=== PATIENT | female | born 1985 | race African-American/Black ===

== ENCOUNTER 2017-01-14 03:35 | Emergency (ER) | payer MEDICARE, MEDICAID ==
[~2017-01-14] VITALS: Ht 165.1 cm; Wt 56.0 kg
[2017-01-14] MEDS ORDERED: SODIUM CHLORIDE 0.9% 500 ML IV ONE (04:05)
[2017-01-14] MEDS ORDERED: ONDANSETRON HCL 4MG/2ML VIAL IV STA (04:05)
[2017-01-14] MEDS ORDERED: PANTOPRAZOLE SODIUM 40 MG/VIAL IV STA (04:05)
[2017-01-14] MEDS ORDERED: MORPHINE SULFATE 4 MG/ML CPJ (NOT FOR IM USE) IV STA (04:05)
[2017-01-14 05:00] LABS: PROTHROMBIN TIME 10.9 sec
[2017-01-14] MEDS ORDERED: DIAZEPAM 5 MG/ML 2ML CPJ IV ONE (05:00)
[2017-01-14 05:11] LABS: HCG SCREEN NEGATIVE
[2017-01-14] MEDS ORDERED: PREDNISONE 10MG TABLET PO ONE (05:30)
[2017-01-14] MEDS ORDERED: MORPHINE SULFATE 4 MG/ML CPJ (NOT FOR IM USE) IV ONE ×2 (05:30→13:45)
[2017-01-14 05:34] LABS: BASOPHILS % 0.3 % (0.0-2.0); DIFFERENTIAL COMMENT 0; EOSINOPHILS % 0.2 % (0.0-5.0); LYMPHOCYTES % 12.3 % (20.0-50.0); MEAN CORPUSCULAR HEMOGLOBIN 29.5 pg (28.0-32.0); MEAN CORPUSCULAR HGB CONC 31.7 g/dL (31.0-37.0); MEAN CORPUSCULAR VOLUME 93.1 fL (81.0-99.0); MEAN PLATELET VOLUME 10.5 fl (7.4-10.4); MONOCYTES % 5.5 % (2.0-8.0); NEUTROPHILS % 81.7 % (40.0-76.0); PLATELET 164 x1000/uL (130-400); RED BLOOD CELL COUNT 2.04 mill/uL (4.2-5.4); RED CELL DISTRIBUTION WIDTH 20.7 % (11.6-14.6)
[2017-01-14] MEDS ORDERED: PANTOPRAZOLE 80 MG in SODIUM CHLORIDE 0.9% 100 ML IV STA (05:39)
[2017-01-14 06:40] LABS: CHLORIDE 97 mEq/L (98-107); INDEX HEMOLYSI 1 (1-3); INDEX ICTERIC 1 (1-4); INDEX LIPEMIC 1 (1-3)
[2017-01-14 06:53] LABS: ALANINE AMINOTRANSFERASE 16 IU/L (13-61); ALBUMIN 2.3 g/dL (3.4-5.0); ANION GAP 25; CALCIUM 6.6 mg/dL (8.5-10.1); CARBON DIOXIDE 26 mEq/L (21-32); LIPASE 258 IU/L (73-393)
[2017-01-14 06:56] LABS: eGFR 2 mL/min (>60)
[2017-01-14 07:01] LABS: UREA NITROGEN BLOOD 103 mg/dL (7-21)
[2017-01-14] MEDS ORDERED: DEXTROSE 50% WATER 50ML SYRINGE IV NR (08:15)
[2017-01-14] MEDS ORDERED: CALCIUM CHLORIDE 1,000 MG in DEXT 5% WATER 90 ML IV NR (08:15)
[2017-01-14] MEDS ORDERED: INSULIN REGULAR (HUMULIN R) 300UNITS/3ML IV NR (08:15)
[2017-01-14] MEDS ORDERED: SODIUM POLYSTYRENE SULFONATE 15 G/60 ML BOT PO NR (08:15)
[2017-01-14] MEDS ORDERED: IPRATROPIUM/ALBUTEROL 0.5-3(2.5)MG/3ML NEB HHN NR (08:16)
[2017-01-14] MEDS ORDERED: FUROSEMIDE 40MG/4ML VIAL IVP NR (08:23)
[2017-01-14] MEDS ORDERED: PANTOPRAZOLE SODIUM 40 MG/VIAL IV ONE (08:27)
[2017-01-14] MEDS ORDERED: DEXTROSE 50% WATER 50ML SYRINGE IV ONE (08:30)
[2017-01-14] MEDS ORDERED: CALCIUM CHLORIDE 1,000 MG in DEXT 5% WATER 90 ML IV ONE (08:30)
[2017-01-14] MEDS ORDERED: INSULIN REGULAR (HUMULIN R) UD 100 UNITS/ML SYR IV ONE (08:30)
[2017-01-14] MEDS ORDERED: IPRATROPIUM/ALBUTEROL 0.5-3(2.5)MG/3ML NEB HHN ONE (08:30)
[2017-01-14] MEDS ORDERED: ONDANSETRON HCL 4MG/2ML VIAL IV PRN (08:45)
[2017-01-14] MEDS ORDERED: VANCOMYCIN 750 MG PREMIX 150 ML IV SCH (08:45)
[2017-01-14] MEDS ORDERED: METRONIDAZOLE 500 MG PREMIX 100 ML IV ONE (08:45)
[2017-01-14] MEDS ORDERED: MEROPENEM 500 MG in SODIUM CHLORIDE 0.9% 50 ML IV SCH (08:45)
[2017-01-14] MEDS ORDERED: MORPHINE SULFATE 2 MG/ML CPJ (NOT FOR IM USE) ONE (08:51)
[2017-01-14] MEDS ORDERED: ONDANSETRON HCL 4MG/2ML VIAL ONE (08:52)
[2017-01-14] MEDS: MORPHINE SULFATE 2 MG/ML CPJ (NOT FOR IM USE) IV PRN ×2 (09:00→13:03)
[2017-01-14] MEDS ORDERED: PANTOPRAZOLE SODIUM 40 MG/VIAL IV SCH (10:15)
[2017-01-14 12:40] LABS: HEMOGLOBIN 10.7 g/dL (12.0-16.0)
[2017-01-14 13:01] LABS: ALANINE AMINOTRANSFERASE 18 IU/L (13-61); ALBUMIN 2.2 g/dL (3.4-5.0); ANION GAP 26; CALCIUM 7.8 mg/dL (8.5-10.1); CARBON DIOXIDE 21 mEq/L (21-32); CHLORIDE 101 mEq/L (98-107); INDEX HEMOLYSI 4 (1-3); INDEX ICTERIC 1 (1-4); INDEX LIPEMIC 1 (1-3)
[2017-01-14 13:10] LABS: eGFR 2 mL/min (>60)
[2017-01-14 13:12] LABS: UREA NITROGEN BLOOD 108 mg/dL (7-21)
[2017-01-14] MEDS ORDERED: IOHEXOL-350 100 ML BOTTLE ONE (13:29)
[2017-01-14] MEDS ORDERED: SODIUM CHLORIDE 0.9% 10ML VIAL ONE (13:29)
[2017-01-14] MEDS ORDERED: ONDANSETRON HCL 4MG/2ML VIAL IV ONE (13:45)
[2017-01-14] MEDS ORDERED: LABETALOL 5MG/ML SYR 20 MG/4 ML SYRINGE IV ONE (13:45)
[2017-01-14] MEDS ORDERED: HYDROMORPHONE HCL/PF 2MG/ML CPJ IV NR (15:45)
[2017-01-14] MEDS ORDERED: FUROSEMIDE 40MG/4ML VIAL IV NR (15:45)
[2017-01-14 17:34] VITALS: BP 158/114
== END 2017-01-14 17:46 | disposition short-term general hospital (02) ==
LOC: ER 03:37
DX: D64.9 Anemia, unspecified (principal); K92.0 Hematemesis; M32.9 Systemic lupus erythematosus, unspecified; R61 Generalized hyperhidrosis; N18.9 Chronic kidney disease, unspecified; R07.89 Other chest pain; Z99.2 Dependence on renal dialysis; Z88.0 Allergy status to penicillin
CPT/HCPCS: 36415; 36430; 71275; 80053; 82962; 83690; 84484; 84703; 85014; 85018; 85025; 85610; 85730; 86850; 86900; 86901; 86920; 94640; 96365; 96366; 96368; 96375; 96376; 99285; A4216; A6261; C9113; J1170; J1815; J1940; J2185; J2270; J2405; J3370; J3490; J7040; J7512; P9016; Q9967; J7050; J7060; J7620